=== PATIENT | male | born 1940 | race Caucasian/White ===

== ENCOUNTER → 2017-05-14 | Outpatient (CLI) | payer MEDICARE, MEDICAID ==
[~2017-05-14] MED LIST: GABA100C7 PO; LEVO500P8 IV; OMEP20CA12 PO; TAMS-14 PO; TRAM50TA PO
--- NOTE | 2017-05-14 15:13 | DIREP ---
PROCEDURE:CT ABDOMEN/PELVIS W/ CONTRAST COMPARISON:[facility], CT, CT ABD/PELVIS W/O, 06/01/2016, 12:45 PM. INDICATIONS:Follow-up cystectomy TECHNIQUE:Axial images were created through the abdomen and pelvis with non-ionic intravenous contrast material. No oral contrast was administered. Sagittal and coronal reconstructions were performed from source images. FINDINGS: LUNG BASES:Normal. No visible pulmonary or pleural disease. LIVER:1.9 cm cyst unchanged BILIARY:Normal. No visible dilatation or calcification. PANCREAS:Normal. No lesion, fluid collection, ductal dilatation, or atrophy. SPLEEN:Normal. No enlargement or focal lesion. ADRENALS:Normal. No mass or enlargement. URINARY TRACT:No hydronephrosis. No hydroureter. Urinary diversion with ostomy left anterior abdominal wall AORTA/VASCULAR:Normal. No aneurysm. RETROPERITONEUM:Normal. No mass or adenopathy. BOWEL/MESENTERY:Ileal conduit left anterior abdominal wall with ostomy. Bowel anastomosis anterior mid abdomen no dilated loops. Diverticulosis of the left colon, no focal signs of diverticulitis ABDOMINAL WALL:Ostomy left supraumbilical PELVIC ORGANS:Bladder absent. No adenopathy. Penile prosthesis with reservoir in the right inguinal region BONES:Multi level Schmorl's nodes lumbar spine. Spondylosis L4-5 with narrowing and endplate sclerosis. No lytic or blastic lesions identified OTHER:Negative. CONCLUSION:Urinary diversion with ostomy left anterior abdominal wall. No hydronephrosis or hydroureter. Dictated by: Barrington Hayden MD on 05/14/2017 at 03:01 PM
== END | disposition home or self-care (01) ==
LOC: CT 10:01
PROVIDERS: ATTEND Urology
DX: C67.2 Malignant neoplasm of lateral wall of bladder (principal); Z93.50 Unspecified cystostomy status
CPT/HCPCS: 36415; 74177; 82565; Q9967

== ENCOUNTER 2017-12-04 23:06 | Emergency (ER) | payer MEDICARE, MEDICAID ==
[~2017-12-04] VITALS: Ht 180.3 cm; Wt 74.8 kg
[2017-12-04 23:16] VITALS: BP 157/74
[2017-12-04] MEDS ORDERED: PROTONIX IV IV STA (23:47)
[2017-12-04] MEDS ORDERED: SANDOSTATIN IV STA (23:47)
[2017-12-05] LABS: BASOPHIL % 0.5 % (0.0-0.2); EOSINOPHIL # 0.1 10^3/uL (0.0-0.2); HEMOGLOBIN 14.9 g/dL (13.9-16.3); LYMPHOCYTES % 12.8 % (24.0-44.0); MEAN CELL HGB 31.6 pg (26-34); MEAN CELL HGB CONCENTRATION 34.4 g/dL (33-37); MEAN CORP VOLUME 91.9 fL (78-100); MONOCYTES # 0.9 10^3/uL (0.3-0.8); NEUTROPHIL # 6.1 10^3/uL (1.8-7.7); NEUTROPHILS % 74.5 % (41.0-85.0); RED CELL DISTRIBUTION WIDTH 14.5 % (11.5-14.5); WHITE BLOOD CELL 8.1 10^3/uL (4.5-11.0)
--- NOTE | 2017-12-05 00:03 | ER.PDOC ---
General Chief Complaint: Nausea,Vomiting,Diarrhea Stated Complaint: POSS GI BLEED Time seen by MD: 00:02 Source: patient Exam Limitations: no limitations History of Present Illness Initial Comments Vomiting bright red blood since yesterday Severity/Quality: moderate Associated Symptoms: dark stools Allergies: Coded Allergies: aspirin (Verified Allergy, Severe, Diarrhea, 12/04/17) BLOODY DIARRHEA acetaminophen (Verified Allergy, Unknown, 06/01/16) Home Meds Active Scripts Levofloxacin/D5w (LEVAQUIN-D5W 500 MG/100 ML BAG) 500 Mg/100 Ml Piggyback, 500 MG IV Q24HRS for 7 Days Prov:BELEM CASILLAS MD 09/15/14 Reported Medications Tamsulosin Hcl (FLOMAX) 0.4 Mg Cap.er.24h, 1 CAP PO DAILY, #30 CAP 11 Refills 09/12/14 Omeprazole (OMEPRAZOLE) 20 Mg Capsule.dr, 1 CAP PO DAILY, #30 CAP 5 Refills 09/12/14 Tramadol Hcl (TRAMADOL HCL) 50 Mg Tablet, 50 MG PO BID for PAIN, TABLET 09/12/14 Gabapentin (GABAPENTIN) 100 Mg Capsule, 1 CAP PO TID, #90 CAP 2 Refills 09/12/14 Past Medical History Medical History: cancer Surgical History: cancer surgery Social History Smoking: greater than 1 pack/day Alcohol Use: heavy Drug Use: none Constitutional: no symptoms reported EENTM: no symptoms reported Respiratory: no symptoms reported Cardiovascular: no symptoms reported ABD/GI (ROS): see HPI All Other Systems: Reviewed and Negative Physical Exam General Appearance: No Apparent Distress, WD/WN EENT: eyes nml inspection, nml ENT inspection, pharynx nml Neck: nml inspection, non-tender Respiratory: chest non-tender, lungs clear, normal breath sounds, no respiratory distress, no accessory muscle use Cardiovascular: Normal Peripheral Pulses, Regular Rate, Rhythm, No Edema, No Gallop, No JVD, No Murmur Gastrointestinal: Normal Bowel Sounds, No Organomegaly, No Pulsatile Mass, Non Tender, Soft Back: Normal Inspection, No CVA Tenderness, No Vertebral Tenderness Extremities: Normal Range of Motion, Non-Tender, Normal Inspection, No Pedal Edema, No Calf Tenderness, Normal Capillary Refill Neurologic/Psychiatric: wire stockkeeper II-XII NML as Tested, No Motor/Sensory Deficits, Alert, Normal Mood/Affect, Oriented x 3 Skin: Normal Color, Warm/Dry Lymphatic: No Adenopathy Results/Orders Results/Orders Laboratory Tests Test 12/04/17 00:00 12/04/17 23:56 Bedside Stool Occult Blood NEGATIVE (NEGATIVE) White Blood Count 8.1 10^3/uL (4.5-11.0) Red Blood Count 4.71 10^6/uL (4.50-5.90) Hemoglobin 14.9 g/dL (13.9-16.3) Hematocrit 43.3 % (37.0-53.0) Mean Corpuscular Volume 91.9 fL (78-100) Mean Corpuscular Hemoglobin 31.6 pg (26-34) Mean Corpuscular Hemoglobin Concent 34.4 g/dL (33-37) Red Cell Distribution Width 14.5 % (11.5-14.5) Platelet Count 205 10^3/uL (150-400) Mean Platelet Volume 9.0 fL (7.8-11.0) Neutrophils (%) (Auto) 74.5 % (41.0-85.0) Lymphocytes (%) (Auto) 12.8 % (24.0-44.0) Monocytes (%) (Auto) 11.0 % (5.0-12.0) Neutrophils # (Auto) 6.1 10^3/uL (1.8-7.7) Lymphocytes # (Auto) 1.0 10^3/uL (1.0-4.8) Monocytes # (Auto) 0.9 10^3/uL (0.3-0.8) Absolute Immature Granulocyte (auto 0.02 10^3 u/L (0-2) Eosinophils % 1.0 % (0.0-5.0) Basophils % 0.5 % (0.0-0.2) Basophils # 0.0 10^3/uL (0.0-0.1) Eosinophil Count 0.1 10^3/uL (0.0-0.2) Prothrombin Time 9.5 SEC (9.8-11.9) Prothrombin Time INR (Non-Therap) 1.0 Activated Partial Thromboplast Time 27.0 SEC (24.67-30.72) Sodium Level 139 mmol/L (132-145) Potassium Level 4.4 mmol/L (3.6-5.2) Chloride Level 101.0 mmol/L (96-109) Carbon Dioxide Level 26.8 mmol/L (20.0-32) Anion Gap 15.6 Blood Urea Nitrogen 15 mg/dL (7-18) Creatinine 0.93 mg/dL (0.59-1.40) Estimated GFR () 95.1 (>/=60) BUN/Creatinine Ratio 16.0 Glucose Level 86 mg/dL (70-110) Calcium Level 9.7 mg/dL (8.4-10.5) Total Bilirubin 0.4 mg/dL (0.2-1.0) Aspartate Amino Transf (AST/SGOT) 21 U/L (0-35) Alanine Aminotransferase (ALT/SGPT) 24 U/L (12-78) Alkaline Phosphatase 67 U/L (50-136) Total Protein 7.5 g/dL (6.4-8.2) Albumin 3.4 g/dL (3.4-5.0) Globulin 4.1 Lipase 59 U/L (114-286) Percent Immature Gran (Cell Imm) 0.20 % (0.00-0.50) Administered Medications Medications (Trade) Dose Ordered Sig/Brian Route PRN Reason Start Time Stop Time Status Last Admin Dose Admin Pantoprazole Sodium (Protonix Iv) 80 mg STAT STAT IV 12/04/17 23:47 12/04/17 23:50 DC 12/05/17 00:15 Octreotide Acetate (Sandostatin) 50 mcg STAT STAT IV 12/04/17 23:47 12/04/17 23:50 DC 12/05/17 00:15 Ondansetron HCl (Zofran) 4 mg STAT STAT IV 12/05/17 00:07 12/05/17 00:08 DC 12/05/17 00:21 Progress Progress Spoke to Dr. Bermudez who told me to transfer patient to [facility]. Patient is transferred because he is a heavy alcoholic and chances that he is having a variceal bleed is high and may require banding. Departure Time of Disposition: 00:45 Disposition: 02 XFER [facility] HOSP Impression: Primary Impression: GI bleed Condition: Stable Referrals: JAMIE TRAN (PCP) PRIMARY CARE PROVIDER Comments Transfer to [facility] ED for Dr. Singleton Duration or Time Spent with Pa: 60 mins Problem Qualifiers Primary Impression: GI bleed GI bleed type/associated pathology: unspecified gastrointestinal hemorrhage type Qualified Codes: K92.2 - Gastrointestinal hemorrhage, unspecified TRAY GORDON MD Dec 05, 2017 00:03
[2017-12-05] MEDS ORDERED: ZOFRAN IV STA (00:07)
[2017-12-05] MEDS ORDERED: SANDOSTATIN ONE (00:08)
[2017-12-05] MEDS ORDERED: PROTONIX IV IV ONE (00:12)
[2017-12-05] MEDS ORDERED: ZOFRAN ONE (00:13)
[2017-12-05 00:15] VITALS: BP 136/74
[2017-12-05 00:16] LABS: CALCIUM 9.7 mg/dL (8.4-10.5); CARBON DIOXIDE 26.8 mmol/L (20.0-32)
--- NOTE | 2017-12-05 00:29 | NUR ---
TRANSFER DR GORDON SPEAKING WITH PATIENT AND PATIENT FAMILY REGARDING TRANSFER TO [place]. EXPLAINED TO PATIENT THAT HE WILL BE ABLE TO BE SEEN BY DR SMITH (THE PATIENT'S GI DOCTOR) IF HE TRANSFERS TO [place]. PATIENT AND PATIENT VOICED UNDERSTANDING, AGREED TO TRANSFER.
--- NOTE | 2017-12-05 01:08 | NUR ---
EMS CALLED FOR TRANSFER SPOKE WITH KAI PARKEREDIC
[2017-12-05 01:15] VITALS: BP 144/71
[2017-12-05 02:00] VITALS: BP 120/69
--- NOTE | 2017-12-05 02:00 | NUR ---
EMS HERE TO TRANSPORT PATIENT TO [facility]. REPORT GIVEN TO ELENA AGENT CONTRACT CLERK
--- NOTE | 2017-12-05 02:08 | NUR ---
REPORT SPOKE WITH DON LEGER AT [facility]
== END 2017-12-05 02:03 | disposition short-term general hospital (02) ==
LOC: ER 23:06 → EDBD 23:06 → ER 12-05 02:03
DX: K92.2 Gastrointestinal hemorrhage, unspecified (principal); F17.200 Nicotine dependence, unspecified, uncomplicated; Z79.899 Other long term (current) drug therapy; Z88.6 Allergy status to analgesic agent; Z88.8 Allergy status to other drugs, medicaments and biological substances
CPT/HCPCS: 36415; 80053; 82272; 83690; 85025; 85610; 85730; 96374; 96375; 99291; C9113; J2354; J2405; 99284; 99285

== ENCOUNTER → 2018-06-22 | Outpatient (CLI) | payer MEDICARE, MEDICAID ==
[~2018-06-22] MED LIST changes: +KENALOG-40 IJ ONE; +LIDOCAINE 2% VIAL SQ ONE
--- NOTE | 2018-06-22 12:58 | DIREP ---
PROCEDURE:FLUOROSCOPIC GUIDANCE NEEDLE PLACEMENT COMPARISON:None. INDICATIONS:OA LEFT HIP, 0.3 FLUORO, 10.16 mGy, 1 IMAGE TECHNIQUE:After explaining the risks, benefits, and alternatives, both oral and written informed consent was obtained from the patient for fluoroscopically-guided hip steroid injection. The patient's left hip area was sterilely prepped and draped. The proposed needle tract was anesthetized with 3 cc 1% lidocaine solution. Under fluoroscopic guidance, a 22 gauge spinal needle was advanced into the left hip joint. A small amount of contrast was injected confirm positioning. A mixture of 6 cc 2% lidocaine, and 1 cc of Kenalog 40 was injected into the hip joint. The needle was then removed. The patient experienced no postprocedural complication. Total fluoroscopy time 0.3 minutes FINDINGS:Imaging documents needle placement and injection of the left femoral head and anatomic neck. CONCLUSION:Fluoroscopic-guided left hip joint injection. Dictated by: Galindo Vaughan M.D. on 06/22/2018 at 12:58 PM
== END | disposition home or self-care (01) ==
LOC: RAD 10:05
PROVIDERS: ATTEND Orthopaedic Surgery
DX: M16.12 Unilateral primary osteoarthritis, left hip (principal); F17.210 Nicotine dependence, cigarettes, uncomplicated; Z79.2 Long term (current) use of antibiotics; Z79.891 Long term (current) use of opiate analgesic; Z79.899 Other long term (current) drug therapy; Z88.6 Allergy status to analgesic agent; Z88.8 Allergy status to other drugs, medicaments and biological substances; Z98.890 Other specified postprocedural states; Z90.49 Acquired absence of other specified parts of digestive tract; Z85.51 Personal history of malignant neoplasm of bladder
CPT/HCPCS: 20610; 77002; J2001; J3301; Q9966

== ENCOUNTER 2018-06-27 11:02 | Emergency (ER) | payer MEDICARE, MEDICAID ==
[~2018-06-27] VITALS: Ht 180.3 cm; Wt 81.6 kg
[~2018-06-27 11:02] MED LIST changes: -KENALOG-40 IJ ONE; -LIDOCAINE 2% VIAL SQ ONE
--- NOTE | 2018-06-27 11:05 | NUR ---
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 HAS A HISTORY OF KINDEY STONE, AND UTI. PATIENT HAS A UROSTOMY SECONDARY TO BLADDER CANCER 3 YEARS AGO. 100 CC OF STRAW COLORED URINE EMPTIED INTO BAG DURING TRIAGE. PATIENT STATES HIS PAIN IS A 10/10. PATIENT CONNECTED TO ALL MONITORS, ASSESSMENT COMPLETED, AWAITING MD GONZALEZ.
[2018-06-27 11:32] VITALS: BP 147/87
[2018-06-27] MEDS ORDERED: TORADOL IV STA (11:32)
--- NOTE | 2018-06-27 11:39 | ER.PDOC ---
General Chief Complaint: Male Stated Complaint: MALE Time seen by MD: 11:25 Source: patient Exam Limitations: no limitations History of Present Illness Initial Comments Pt has a h/o bladder cancer, with urostomy, started last night with right sided flank pain and right LQ pain, states that usually by now he would have a full bag of urine, and is not at the moment Timing/Duration: 4-6 hours Severity/Quality: severe, cramping, sharpness Radiation: RLQ, flank Exacerbated by: movements, deep breaths Relieved By: supine Allergies: Coded Allergies: aspirin (Verified Allergy, Severe, Diarrhea, 12/04/17) BLOODY DIARRHEA acetaminophen (Verified Allergy, Unknown, 06/01/16) Home Meds Active Scripts Levofloxacin/D5w (LEVAQUIN-D5W 500 MG/100 ML BAG) 500 Mg/100 Ml Piggyback, 500 MG IV Q24HRS for 7 Days Prov:BELEM CASILLAS MD 09/15/14 Reported Medications Tamsulosin Hcl (FLOMAX) 0.4 Mg Cap.er.24h, 1 CAP PO DAILY, #30 CAP 11 Refills 09/12/14 Omeprazole (OMEPRAZOLE) 20 Mg Capsule.dr, 1 CAP PO DAILY, #30 CAP 5 Refills 09/12/14 Tramadol Hcl (TRAMADOL HCL) 50 Mg Tablet, 50 MG PO BID for PAIN, TABLET 09/12/14 Gabapentin (GABAPENTIN) 100 Mg Capsule, 1 CAP PO TID, #90 CAP 2 Refills 09/12/14 Vital Signs First Vital Signs Date Time Temp Pulse Resp B/P (MAP) Pulse Ox O2 Delivery O2 Flow Rate FiO2 06/27/18 11:25 98.0 84 16 98.0 06/27/18 11:25 90 Room Air 06/27/18 11:32 147/87 (107) Last Vital Signs Date Time Temp Pulse Resp B/P (MAP) Pulse Ox O2 Delivery O2 Flow Rate FiO2 06/27/18 11:32 98.0 84 16 147/87 (107) 90 Room Air 98.0 Past Medical History Medical History: cancer, other Surgical History: appendectomy, cholecystectomy, other Social History Smoking: cigarettes, less than 1 pack/day Alcohol Use: occassionally Drug Use: none Constitutional: no symptoms reported EENTM: no symptoms reported Respiratory: no symptoms reported Cardiovascular: no symptoms reported Gastrointestinal: see HPI Genitourinary: see HPI Musculoskeletal: no symptoms reported Skin: no symptoms reported Psychiatric/Neurological: no symptoms reported Endocrine: no symptoms reported Hematologic/Lymphatic: no symptoms reported Physical Exam General Appearance: No Apparent Distress, WD/WN HEENT: PERRL/EOMI, Normal ENT Inspection, TMs Normal, Pharynx Normal Neck: Non-Tender, Full Range of Motion, Supple, Normal Inspection Respiratory: chest non-tender, lungs clear, normal breath sounds, no respiratory distress, no accessory muscle use Cardiovascular: Normal Peripheral Pulses, Regular Rate, Rhythm, No Edema, No Gallop, No JVD, No Murmur Gastrointestinal: Normal Bowel Sounds, Distended, Tenderness (right LQ), Other (urostomy on Left paraumbilical area) Back: Normal Inspection, No CVA Tenderness, No Vertebral Tenderness, CVA Tenderness (R) Extremities: Normal Range of Motion, Non-Tender, Normal Inspection, No Pedal Edema, No Calf Tenderness, Normal Capillary Refill, Pelvis Stable Neurologic/Psychiatric: shared services representative II-XII NML as Tested, No Motor/Sensory Deficits, Alert, Normal Mood/Affect, Oriented x 3 Skin: Normal Color, Warm/Dry Lymphatic: No Adenopathy Course Vitals & review Data Vital Sign - Last 24 Hours 06/27/18 06/27/18 06/27/18 11:25 11:25 11:32 Temp 98.0 98.0 98.0 98.0 98.0 98.0 Pulse 84 84 84 Resp 16 16 16 B/P (MAP) 147/87 (107) Pulse Ox 90 90 O2 Delivery Room Air Room Air Departure Time of Disposition: 13:10 Disposition: 02 XFER [facility] Impression: Primary Impression: Retention of urine Additional Impressions: UTI (urinary tract infection) Ureteropelvic junction (UPJ) obstruction, right Obstruction of right ureter Condition: Stable Referrals: JAMIE TRAN (PCP) PRIMARY CARE PROVIDER Duration or Time Spent with Pa: 30 Problem Qualifiers JOSELYN HARLEY MD Jun 27, 2018 11:39
[2018-06-27] MEDS ORDERED: NS 1000ML 1,000 ML ONE (11:40)
[2018-06-27] MEDS ORDERED: TORADOL ONE (11:41)
--- NOTE | 2018-06-27 11:43 | NUR ---
CT PATIENT TO CT
[2018-06-27 11:47] LABS: BASOPHIL % 0.1 % (0.0-0.2); EOSINOPHIL % 0.3 % (0.0-5.0); HEMOGLOBIN 14.1 g/dL (13.9-16.3); LYMPHOCYTES % 7.9 % (24.0-44.0); MEAN CELL HGB 32.3 pg (26-34); MEAN CELL HGB CONCENTRATION 34.1 g/dL (33-37); MONOCYTES # 1.7 10^3/uL (0.3-0.8); MONOCYTES % 13.5 % (5.0-12.0); NEUTROPHIL # 9.5 10^3/uL (1.8-7.7); NEUTROPHILS % 77.8 % (41.0-85.0); RED CELL DISTRIBUTION WIDTH 17.6 % (11.5-14.5); WHITE BLOOD CELL 12.2 10^3/uL (4.5-11.0)
--- NOTE | 2018-06-27 11:59 | NUR ---
CT PATIENT BACK FROM CT AT THIS TIME.
[2018-06-27] MEDS ORDERED: NS 1000ML 1,000 ML IV ONE (12:00)
--- NOTE | 2018-06-27 12:00 | NUR ---
UPDATE PATIENT IN ROOM, NO NEEDS, CONCERNS AT THIS TIME.
[2018-06-27 12:03] LABS: CALCIUM 9.2 mg/dL (8.4-10.5); CARBON DIOXIDE 31.1 mmol/L (20.0-32)
[2018-06-27 12:13] LABS: BILIRUBIN,URINE NEGATIVE (NEGATIVE); UROBILINOGEN,URINE NORMAL (NEGATIVE)
--- NOTE | 2018-06-27 12:26 | DIREP ---
PROCEDURE:CT ABDOMEN/PELVIS W/O CONTRAST COMPARISON:[facility], CR, FLUOROSCOPIC GUIDANCE NEEDLE PLACEMENT, 06/22/2018, 11:06 AM. [facility], CT, CT ABD/PELVIS W/O, 03/09/2018, 10:55 AM. INDICATIONS:Right LQ pain, right flank pain TECHNIQUE:Axial images were created through the abdomen and pelvis without intravenous contrast material. No oral contrast was administered. Sagittal and coronal reconstructions were performed from source images. FINDINGS: LUNG BASES:Normal. No visible pulmonary or pleural disease. LIVER:Normal. No significant liver lesions are identified. Stable small cyst in right mid liver lobe. BILIARY:Normal. No visible dilatation or calcification. PANCREAS:Normal. No lesion, fluid collection, ductal dilatation, or atrophy. SPLEEN:Normal. No enlargement or focal lesion. ADRENALS:Normal. No mass or enlargement. URINARY TRACT:Mild hydronephrosis of the right kidney and strandy changes in the perirenal fat as well as dilatation of the right ureter to the level of the diversion ileostomy in the left lower anterior abdomen. Normal left renal collecting system and ureteral diversion. AORTA/VASCULAR:There are aortic atherosclerotic calcifications present. No aneurysm. RETROPERITONEUM:Stable enlarged periaortic retroperitoneal, and retrocrural lymph nodes BOWEL/MESENTERY:Sigmoid diverticula. Postsurgical changes related to ileal conduit. ABDOMINAL WALL:Normal. No mass or hernia. PELVIC ORGANS:Cystectomy and prostatectomy. Right lower quadrant penile reservoir BONES:There are degenerative changes of the spine. OTHER:Negative. CONCLUSION: 1. Patient status post cystectomy and prostatectomy with ileal loop ureteral diversion and ostomy in left lower quadrant of abdomen. There is dilatation of the right renal collecting system and right ureter to the ostomy site suggesting a partial distal obstruction, however this may also represent reflux, however not present on the prior study. This report was called by telephone at 12:24 pm on June 27, [address] Abhinav Mora . Dictated by: Vasyl Mckoy M.D. on 06/27/2018 at 12:07 PM
[2018-06-27 12:30] LABS: APPEARANCE,URINE CLOUDY (CLEAR); UA COLOR YELLOW (YELLOW)
--- NOTE | 2018-06-27 12:48 | NUR ---
UROLOGIST MESSAGE LEFT FOR DR. WILLS, UROLOGIST FOR EDP.
--- NOTE | 2018-06-27 12:54 | NUR ---
[facility]Y (BACK) WHO IS [employer]ELES[facility]ES CONSULTANT FOR DR. WILLS. PT CONSULT FOR POSSIBLE TRANSFER.
[2018-06-27] MEDS ORDERED: NS 100ML 100 ML IV ONE ×2 (12:55→13:02)
[2018-06-27] MEDS ORDERED: ROCEPHIN ONE ×2 (12:55→13:02)
[2018-06-27] MEDS ORDERED: ROCEPHIN 1,000 MG in NS 100ML 100 ML IV ONE (13:00)
--- NOTE | 2018-06-27 13:44 | NUR ---
UPDATE PATIENT PERSONAL BELONGINGS PUT IN A BAG. PATIENT READY FOR TRANSFER.
--- NOTE | 2018-06-27 13:50 | NUR ---
EMS CALLED [facility] TO DISPATCH EMS
--- NOTE | 2018-06-27 14:14 | NUR ---
EMS ARRIVED IN ER
[2018-06-27 14:18] VITALS: BP 137/71
[2018-06-27 14:26] VITALS: BP 137/71
--- NOTE | 2018-06-27 14:27 | NUR ---
REPORT CALLED TO KATHLEEN KAN RN
== END 2018-06-27 14:23 | disposition short-term general hospital (02) ==
LOC: ER 11:02
DX: N39.0 Urinary tract infection, site not specified (principal); N13.5 Crossing vessel and stricture of ureter without hydronephrosis; F17.210 Nicotine dependence, cigarettes, uncomplicated; Z90.49 Acquired absence of other specified parts of digestive tract; Z85.51 Personal history of malignant neoplasm of bladder; Z98.890 Other specified postprocedural states; Z88.6 Allergy status to analgesic agent; Z79.891 Long term (current) use of opiate analgesic; Z79.899 Other long term (current) drug therapy
CPT/HCPCS: 36415; 74176; 80053; 81000; 82150; 83690; 85025; 85610; 85730; 87077; 87086; 87186; 96374; 96375; 99285; J0696; J1885; J7030; J7050 ×3